=== PATIENT | female | born 1995 | race Caucasian/White ===

== ENCOUNTER → 2017-02-20 | Outpatient (CLI) | payer OTHER | LOC: BHSO 13:02 | DX: F90.9 Attention-deficit hyperactivity disorder, unspecified type (principal) | CPT/HCPCS: 90791-AI ==

== ENCOUNTER → 2017-03-24 | Outpatient (CLI) | payer OTHER | LOC: BHSO 15:55 | DX: F41.1 Generalized anxiety disorder (principal) ==